=== PATIENT | female | born 1995 | race Two or more races ===

== ENCOUNTER 2021-12-08 09:38 | Observation (INO) | payer OTHER ==
[2021-12-08] MEDS: Sodium Chloride 0.9% 1,000 ML IV SCH ×2 (10:00→11:34)
[2021-12-08] MEDS ORDERED: Sodium Chloride 0.9% 10 ML Syringe FLUSH PRN (10:04)
[2021-12-08] MEDS ORDERED: Ondansetron 4 MG/2 ML SDV IVPUSH ONE (10:08)
[2021-12-08] MEDS ORDERED: cefTRIAXone 2 GM in Sodium Chloride 0.9% 100 ML IV ONE (10:09)
[2021-12-08] MEDS ORDERED: Acetaminophen 500 MG Tab PO ONE (10:10)
[2021-12-08 10:31] LABS: CHLORIDE,CL 103 mmol/L (98-107); SODIUM,NA 138 mmol/L (136-145)
[2021-12-08 10:38] LABS: ANION GAP 13.2 meq/L (7-15); ESTIMATED GFR 97 mL/min (>=60)
[2021-12-08 11:06] LABS: CORONAVIRUS COVID-19 NAA NEGATIVE (NEGATIVE); RESPIRATORY SYNCYTIAL VIR NAA NEGATIVE (NEGATIVE)
[2021-12-08] MEDS ORDERED: Sodium Chloride 0.9% 1,000 ML IV SCH (11:45)
[2021-12-08] MEDS ORDERED: Lactated Ringers 1,000 ML IV SCH (13:00)
[2021-12-08] MEDS ORDERED: Ondansetron 4 MG/2 ML SDV IVPUSH PRN (14:00)
[2021-12-08] MEDS: Acetaminophen 325 MG Tab PO PRN ×2 (16:08→20:30)
[2021-12-08] MEDS: NS + KCl 20mEq/L 1,000 ML IV SCH (19:25)
[2021-12-09] MEDS: Acetaminophen 325 MG Tab PO PRN ×2 (00:27→05:01)
[2021-12-09] MEDS: NS + KCl 20mEq/L 1,000 ML IV SCH (03:29)
[2021-12-09 08:01] LABS: ANION GAP 11.8 meq/L (7-15)
[2021-12-09] MEDS ORDERED: cefTRIAXone 2 GM Vial IVPUSH SCH (10:00)
== END 2021-12-09 11:40 | disposition home or self-care (01) ==
LOC: LL.ED 09:38 → LL.MS 13:25
PROVIDERS: ADMIT Physician Assistant; ATTEND Physician Assistant
DX: N61.0 Mastitis without abscess (principal); Z20.822 Contact with and (suspected) exposure to COVID-19
CPT/HCPCS: 0241U; 36415; 80048; 80053; 81001; 83605; 83735; 84100; 85025; 85610; 85730; 86140; 87040; 87086; 96361; 96365; 96375; 96376; 99284; 99284-25; A9270-GY; G0378; J0696; J2405; J3480; J7030; J7120

== ENCOUNTER 2021-12-25 19:34 | Emergency (ER) | payer SELFPAY ==
[2021-12-25] MEDS ORDERED: Acetaminophen 500 MG Tab PO ONE (19:48)
[2021-12-25] MEDS ORDERED: Sodium Chloride 0.9% 10 ML Syringe FLUSH PRN (19:49)
[2021-12-25] MEDS ORDERED: cefTRIAXone 2 GM in Sodium Chloride 0.9% 100 ML IV ONE (19:53)
[2021-12-25] MEDS ORDERED: Lactated Ringers 1,000 ML IV SCH ×2 (20:00→23:00)
[2021-12-25 20:40] VITALS: BP 97/61; PULSE 119
[2021-12-25 22:09] LABS: ANION GAP 9.5 meq/L (7-15); CHLORIDE,CL 103 mmol/L (98-107); SODIUM,NA 139 mmol/L (136-145)
[2021-12-25 22:12] LABS: ESTIMATED GFR 88 mL/min (>=60)
== END 2021-12-26 01:22 | disposition home or self-care (01) ==
LOC: LL.ED 19:34
DX: N61.0 Mastitis without abscess (principal)
CPT/HCPCS: 36415; 80053; 83605; 85025; 86140; 87040; 96361; 96365; 99283-25; 99284; A9270-GY; J0696; J7120